=== PATIENT | female | born 1970 | race Caucasian/White ===

== ENCOUNTER → 2024-04-06 15:04 | Outpatient (REF) | payer OTHER, SELFPAY | LOC: MRI 15:04 | PROVIDERS: ATTENDING PHYSICIAN Surgery Vascular Surgery; FAMILY PHYSICIAN Family Medicine | DX: I72.8 Aneurysm of other specified arteries (principal) | CPT/HCPCS: 72198; 74185; A9585 ==

== ENCOUNTER → 2025-03-06 15:54 | Outpatient (REF) | payer OTHER, SELFPAY | LOC: HWRCS 15:54 | PROVIDERS: ATTENDING PHYSICIAN Internal Medicine Cardiovascular Disease; FAMILY PHYSICIAN Family Medicine | DX: I10 Essential (primary) hypertension (principal) | CPT/HCPCS: 93306 ==